=== PATIENT | female | born 1990 | race Caucasian/White ===

== ENCOUNTER 2016-06-06 22:39 | Emergency (ER) | payer OTHER ==
--- NOTE | 2016-06-06 22:52 | EDM.PDOC ---
ED HPI GENERAL MEDICAL PROBLEM - General Chief Complaint: Neuro Symptoms/Deficits Stated Complaint: HEADACHE/NUMBNESS LIP Time Seen by Provider: 06/06/16 22:52 - History of Present Illness INITIAL COMMENTS - FREE TEXT/NARRATIVE: HISTORY AND PHYSICAL: History of present illness: Patient's 26-year-old female history of a 30 week intrauterine with a concern of perioral numbness and bilateral hand numbness she states she does have anxiety she states a prior she did have preeclampsia she denies abdominal pain vaginal discharge or bleeding chest pain palpitations or other concern. Review of systems: As per history of present illness and below otherwise all systems reviewed and negative. Past medical history: As per history of present illness and as reviewed below otherwise noncontributory. Surgical history: As per history of present illness and as reviewed below otherwise noncontributory. Social history: No reported history of drug or alcohol abuse. Family history: As per history of present illness and as reviewed below otherwise noncontributory. Physical exam: HEENT: Atraumatic, normocephalic, pupils reactive, negative for conjunctival pallor or scleral icterus, mucous membranes moist, throat clear, neck supple, nontender, trachea midline. Lungs: Clear to auscultation, breath sounds equal bilaterally, chest nontender. Heart: S1S2, regular, negative for clicks, rubs, or JVD. Abdomen: Soft, gravid uterus consistent with dates nontender Negative for masses or hepatosplenomegaly. Negative for costovertebral tenderness. Pelvis: Stable nontender. Genitourinary: Deferred. Rectal: Deferred. Extremities: Atraumatic, negative for cords or calf pain. Neurovascular unremarkable. Neuro: Awake, alert, oriented. Cranial nerves II through XII unremarkable. Cerebellum unremarkable. Motor and sensory unremarkable throughout. Exam nonfocal. Diagnostics: CBC CMP UA heart tones EKG Therapeutics: None Impression: #1 30 week intrauterine #2 paresthesia #3 anxiety Definitive disposition and diagnosis as appropriate pending reevaluation and review of above. face & bilateral hands Pain Score (Numeric/FACES): 0 - Related Data Allergies Allergy/AdvReac Type Severity Reaction Status Date / Time No Known Allergies Allergy Verified 06/06/16 22:42 Home Meds: Home Meds Aspirin 81 mg PO ONETIME 06/06/16 [History] Vit #108/Iron/FA [ One Tablet] 1 tab PO DAILY 06/06/16 [History ] ED ROS GENERAL - Review of Systems Review Of Systems: ROS reveals no pertinent complaints other than HPI. ED EXAM, GENERAL - Physical Exam Exam: See Below (See dictation) Course - Vital Signs Last Recorded V/S: Last Vital Signs Temp 36.6 C 06/06/16 22:44 Pulse 95 06/06/16 22:44 Resp 18 06/06/16 22:44 BP 140/75 06/06/16 22:44 Pulse Ox 100 06/06/16 22:44 - Orders/Labs/Meds Orders: Active Orders 24 hr Category Date Time Status EKG 12 Lead [EKG Documentation Completion] [RC] STAT Care 06/06/16 22:42 Active Heart Rate [RC] Click To Edit Care 06/06/16 22:43 Active CBC WITH AUTO DIFF [HEME] Stat Lab 06/06/16 22:42 Ordered COMPREHENSIVE METABOLIC PN,CMP [CHEM] Stat Lab 06/06/16 22:42 Ordered UA W/MICROSCOPIC [URIN] Stat Lab 06/06/16 22:42 Uncollected Departure - Departure Time of Disposition: 22:51 Disposition: Home, Self-Care 01 Condition: good Clinical Impression: Third trimester , Anxiety Forms: ED Department Discharge Additional Instructions: The following information is given to patients seen in the emergency department who are being discharged to home. This information is to outline your options for follow-up care. We provide all patients seen in our emergency department with a follow-up referral. The need for follow-up, as well as the timing and circumstances, are variable depending upon the specifics of your emergency department visit. If you don't have a primary care physician on staff, we will provide you with a referral. We always advise you to contact your personal physician following an emergency department visit to inform them of the circumstance of the visit and for follow-up with them and/or the need for any referrals to a consulting specialist. The emergency department will also refer you to a specialist when appropriate. This referral assures that you have the opportunity for followup care with a specialist. All of these measure are taken in an effort to provide you with optimal care, which includes your followup. Under all circumstances we always encourage you to contact your private physician who remains a resource for coordinating your care. When calling for followup care, please make the office aware that this follow-up is from your recent emergency room visit. If for any reason you are refused follow-up, please contact the [facility] emergency department at and asked to speak to the emergency department charge nurse. Followup labor and delivery as discussed followup primary medical doctor/OB gynecology 24-48 hours return as needed as discussed - My Orders Last 24 Hours: My Active Orders 06/06/16 22:42 EKG 12 Lead [EKG Documentation Completion] [RC] STAT CBC WITH AUTO DIFF [HEME] Stat COMPREHENSIVE METABOLIC PN,CMP [CHEM] Stat UA W/MICROSCOPIC [URIN] Stat 06/06/16 22:43 Heart Rate [RC] Click To Edit - Assessment/Plan Last 24 Hours: My Active Orders 06/06/16 22:42 EKG 12 Lead [EKG Documentation Completion] [RC] STAT CBC WITH AUTO DIFF [HEME] Stat COMPREHENSIVE METABOLIC PN,CMP [CHEM] Stat UA W/MICROSCOPIC [URIN] Stat 06/06/16 22:43 Heart Rate [RC] Click To Edit
[2016-06-06 23:18] LABS: CHLORIDE,CL 108 mmol/L (98-110); SODIUM,NA 140 mmol/L (136-146)
[2016-06-06 23:50] VITALS: BP 116/62
== END 2016-06-06 23:46 | disposition home or self-care (01) ==
LOC: MW.ED 22:39
DX: O99.343 Other mental disorders complicating pregnancy, third trimester (principal); F41.9 Anxiety disorder, unspecified; R20.9 Unspecified disturbances of skin sensation; Z79.82 Long term (current) use of aspirin; Z3A.30 30 weeks gestation of pregnancy
CPT/HCPCS: 36415; 80053; 81001; 85025; 93005; 99283; 99284-25

== ENCOUNTER 2016-06-12 13:56 | Outpatient (CLI) | payer OTHER ==
[2016-06-12] MEDS ORDERED: Acetaminophen/oxyCODONE 325-5 MG Tab PO ONE (15:59)
--- NOTE | 2016-06-12 16:01 | US ---
EXAMINATION: Biophysical profile HISTORY: Decreased movement COMPARISON: None TECHNIQUE: Grayscale, color Doppler, and spectral Doppler images obtained transabdominally. FINDINGS: There is a single live intrauterine noted in the cephalic position. The placenta appears anterior. The amniotic fluid index is 20.5 cm. There is positive breathing, movement, and tone. The heart rate is 140 bpm. IMPRESSION: Biophysical profile 09/18.
== END 2016-06-12 16:30 | disposition home or self-care (01) ==
LOC: MW.OBCHECK 13:56 → MW.OB 14:00 → MW.OBCHECK 16:30
PROVIDERS: ATTEND Obstetrics & Gynecology
DX: O36.8130 Decreased fetal movements, third trimester, not applicable or unspecified (principal); M54.5 Low back pain; Z3A.30 30 weeks gestation of pregnancy
CPT/HCPCS: 59025; 76819; 81003; A9270

== ENCOUNTER 2016-08-09 00:20 | Inpatient (IN) | payer OTHER ==
[2016-08-09] MEDS ORDERED: Methylergonovine 0.2 MG/1 ML Amp IM PRN (13:09)
[2016-08-09] MEDS ORDERED: Sodium Chloride 0.9% 2.5 ML Syringe FLUSH PRN (13:09)
[2016-08-09] MEDS ORDERED: Sodium Chloride 0.9% 10 ML Syringe FLUSH PRN (13:09)
[2016-08-09] MEDS ORDERED: Butorphanol 1 MG/ML SDV IVPUSH PRN (13:09)
[2016-08-09] MEDS ORDERED: Carboprost Tromethamine 250 MCG/1 ML Amp IM PRN (13:09)
[2016-08-09] MEDS ORDERED: Water For Irrigation,Sterile 1,000 ML Container IRR PRN (13:09)
[2016-08-09] MEDS ORDERED: Lidocaine 1% 50 ML MDV INJECT PRN (13:09)
[2016-08-09] MEDS ORDERED: Misoprostol 200 MCG Tab PO PRN (13:09)
[2016-08-09] MEDS ORDERED: Terbutaline 1 MG/ML SDV SUBCUT PRN (13:13)
[2016-08-09] MEDS ORDERED: Oxytocin/Lactated Ringers 30 UNIT/500 ML BAG IV SCH (13:15)
[2016-08-09] MEDS: Lactated Ringers 1,000 ML IV SCH ×3 (14:10→19:51)
--- NOTE | 2016-08-09 18:44 | PCM.PREANE ---
Preanesthetic Assessment - Anesthesia/Transfusion/Family Hx Anesthesia History: Prior Anesthesia Without Reaction Family History of Anesthesia Reaction: No Transfusion History: No Prior Transfusion(s) - Review of Systems Other: Reports: None - Physical Assessment Height: 5 ft 2.5 in Weight: 123.831 kg ASA Class: 2 Mental Status: Alert & Oriented x3 Airway Class: Mallampati = 1 Dentition: Reports: Normal Dentition Thyro-Mental Finger Breadths: 3 Mouth Opening Finger Breadths: 3 ROM/Head Extension: Full - Lab Values: Laboratory Last Values WBC 10.42 K/uL (4.0-11.0) 08/09/16 13:36 RBC 4.16 M/uL (4.30-5.90) L 08/09/16 13:36 Hgb 11.9 g/dL (12.0-16.0) L 08/09/16 13:36 Hct 35.3 % (36.0-46.0) L 08/09/16 13:36 MCV 84.9 fL (80.0-98.0) 08/09/16 13:36 MCH 28.6 pg (27.0-32.0) 08/09/16 13:36 MCHC 33.7 g/dL (31.0-37.0) 08/09/16 13:36 RDW Std Deviation 49.1 fl (28.0-62.0) 08/09/16 13:36 RDW Coeff of [place] 16 % (11.0-15.0) H 08/09/16 13:36 Plt Count 189 K/uL (150-400) 08/09/16 13:36 MPV 9.70 fL (7.40-12.00) 08/09/16 13:36 Nucleated RBC % 0.6 /100WBC 08/09/16 13:36 Nucleated RBCs # 0 K/uL 08/09/16 13:36 Blood Type O NEGATIVE 08/09/16 13:36 Antibody Screen NEGATIVE 08/09/16 13:36 - Allergies Allergies/Adverse Reactions: Allergies Allergy/AdvReac Type Severity Reaction Status Date / Time No Known Allergies Allergy Verified 06/06/16 22:42 - Blood Blood Available: Yes Product(s) Available: PRBC - Acknowledgements Anesthesia Type Planned: Epidural Pt an Appropriate Candidate for the Planned Anesthesia: Yes Alternatives and Risks of Anesthesia Discussed w Pt/Guardian: Yes Pt/Guardian Understands and Agrees with Anesthesia Plan: Yes PreAnesthesia Questionnaire HEENT History: Reports: None Cardiovascular History: Reports: None Respiratory History: Reports: None Gastrointestinal History: Reports: None Genitourinary History: Reports: Other (See Below) Other Genitourinary History: Urinary tract infection [employer] History: Reports: , Other (See Below) Other OB/BYN History: Pre-eclampsia Musculoskeletal History: Reports: None Neurological History: Reports: None Psychiatric History: Reports: Anxiety Endocrine/Metabolic History: Reports: None Hematologic History: Reports: None Immunologic History: Reports: None Oncologic (Cancer) History: Reports: None Dermatologic History: Reports: None - Infectious Disease History Infectious Disease History: Reports: Chicken Pox - Past Surgical History Head Surgeries/Procedures: Reports: None Cardiovascular Surgical History: Reports: None Female Surgical History: Reports: Other (See Below) Other Female Surgeries/Procedures: Right Salpingectomy for Ectopic - SUBSTANCE USE Smoking Status *Q: Former Smoker (quit 3 months ago) Second Hand Smoke Exposure: No Recreational Drug Use History: No - HOME MEDS Home Medications: Home Meds Aspirin 81 mg PO ONETIME 06/06/16 [History] Vit #108/Iron/FA [ One Tablet] 1 tab PO DAILY 06/06/16 [History ] - CURRENT (IN HOUSE) MEDS Current Meds: Current Medications Butorphanol Tartrate (Stadol) 1 mg IVPUSH Q1H PRN PRN Reason: Pain Last Admin: 08/09/16 18:19 Dose: 1 mg Carboprost Tromethamine (Hemabate Ds) 250 mcg IM ASDIRECTED PRN PRN Reason: Post Hemorrhage Lactated Ringer's (Ringers, Lactated) 1,000 mls @ 150 mls/hr IV ASDIRECTED NICO Last Admin: 08/09/16 13:43 Dose: 150 mls/hr Oxytocin/Lactated Ringer's (Pitocin In Lr 30 Units/500 Ml) 30 unit in 500 mls @ 2 mls/hr IV TITRATE NICO; 2 MUNITS/MIN PRN Reason: Protocol Last Titration: 08/09/16 17:33 Dose: 18 munits/min, 18 mls/hr Lidocaine HCl (Xylocaine 1%) 50 ml INJECT .ONCE PRN PRN Reason: Laceration repair Methylergonovine Maleate (Methergine) 0.2 mg IM ASDIRECTED PRN PRN Reason: Post Hemorrhage Misoprostol (Cytotec) 200 mcg PO .ONCE PRN PRN Reason: Post Hemorrhage Sodium Chloride (Saline Flush) 10 ml FLUSH ASDIRECTED PRN PRN Reason: Keep Vein Open Sodium Chloride (Saline Flush) 2.5 ml FLUSH ASDIRECTED PRN PRN Reason: Keep Vein Open Sterile Water (Sterile Water For Irrigation) 1,000 ml IRR ASDIRECTED PRN PRN Reason: delivery Terbutaline Sulfate (Brethine) 0.25 mg SUBCUT ASDIRECTED PRN PRN Reason: Tacysystole
[2016-08-09] MEDS ORDERED: Ropivacaine 0.2% 2 MG/ML 20 ML SDV ONE (19:06)
[2016-08-10] MEDS ORDERED: Ibuprofen 800 MG Tab ONE (01:06)
[2016-08-10] MEDS ORDERED: Acetaminophen 500 MG Tab PO PRN (01:24)
[2016-08-10] MEDS ORDERED: Benzocaine/Menthol 20%-0.5% Spray 78 GM Cannister TOP PRN (01:24)
[2016-08-10] MEDS ORDERED: Methylergonovine 0.2 MG/1 ML Amp IM PRN (01:24)
[2016-08-10] MEDS ORDERED: Bisacodyl 10 MG Supp RECTAL PRN (01:24)
[2016-08-10] MEDS ORDERED: Oxytocin/Lactated Ringers 30 UNIT/500 ML BAG ONE (01:24)
[2016-08-10] MEDS ORDERED: Witch Hazel Medicated Pads 40/Jar TOP PRN (01:24)
[2016-08-10] MEDS ORDERED: Docusate Sodium 100 MG Cap PO PRN (01:24)
[2016-08-10] MEDS ORDERED: oxyCODONE 5 MG Tab PO PRN (01:24)
[2016-08-10] MEDS ORDERED: Lanolin 100% Cream 7 GM Tube TOP PRN (01:24)
[2016-08-10] MEDS: Ibuprofen 800 MG Tab PO PRN ×3 (01:39→22:51)
--- NOTE | 2016-08-10 05:36 | OR ---
SURGEON: Adriane Rosenbaum M.D. DATE OF PROCEDURE: 08/10/2016 PREOPERATIVE DIAGNOSIS: A 39-1/7th week intrauterine for induction of labor. POSTOPERATIVE DIAGNOSIS: A 39-1/7th week intrauterine for induction of labor and macrosomia with shoulder dystocia. PROCEDURE: 1. Pitocin induction of labor, term spontaneous vaginal delivery. 2. Repair of second-degree laceration. ANESTHESIA: Epidural. ESTIMATED BLOOD LOSS: Less than 300 mL. FINDINGS: Live born female, score 3, 7, and 8, weighing 4870 g. Placenta spontaneous. Schultze intact with 3 vessels. Second-degree perineal laceration was repaired. The has weakness in the left arm and some bruising on the left shoulder. COMPLICATIONS: None known. DISPOSITION: Mother and baby are in LDRP in good condition. BRIEF HISTORY: This is a 26-year-old female, G4, P2-0-1-2, who presents at 39 weeks' gestation for elective induction of labor. She has a history of preeclampsia with some mildly elevated blood pressures at term. However, preeclamptic evaluation has been negative. She transferred care at 28 weeks gestation. She is blood type O negative. She received RhoGAM during the and she is rubella immune. Group B strep negative. Estimated weight from Dr. Pearl was 3900 g. Cephalic presentation. This estimated weight was slightly higher than the estimated weight predicted by ultrasound. The patient presented to Labor and Delivery. She had category 1 heart tones. Her cervix was initially 3 cm, 70%, -2 station. Pitocin was initiated. Artificial rupture of membranes was performed with clear fluid noted. She received an epidural for pain control and she progressed to complete. PROCEDURE: With the patient in dorsal lithotomy position, under adequate epidural analgesia, the patient pushed over 30 minute time period to +5 station. At this point, some turtling was noted. I did have the nurses prepare for shoulder dystocia drill. I also notified the patient of the plan to utilize Whit maneuver and suprapubic pressure. Over the next two contractions, she did continue to push and the head was delivered spontaneously and atraumatically over the perineum with support. The head was delivered in the right occiput anterior position. The curling sign occurred. There was suprapubic pressure that had immediately been applied and was even applied as the head was being delivered. The maternal head was placed in the lowest position and hyperflexion of the hips was performed. With this, the shoulder did not easily deliver. I placed a hand behind the shoulder to rotate the shoulder anteriorly. The anterior shoulder did not move whatsoever. There was a large amount of room posteriorly, so I worked rotating the posterior shoulder anteriorly and then rotated the anterior shoulder posteriorly and I was able to slowly rotate the anterior shoulder down from behind the pubic symphysis delivering the posterior arm first and then the anterior arm with subsequent delivery of the 's body without any difficulty. As the baby was delivered, the cord avulsed. It was quickly clamped and the required some resuscitation always with a normal heart rate and several puffs with the oxygen mask and the baby had scores of 3, 7, and 8. Dr. Barragan was present very shortly after delivery to assist with evaluation. The resuscitation was completed by the time she had arrived. Cord blood was collected for cord ABGs as well as routine cord blood sampling. Pitocin was initiated after delivery of the to assist with delivery of the placenta which was delivered spontaneously. Madalyn intact with 3 vessels. I did carefully inspect the placenta, particularly related to the reported history of an accessory lobe. They did appear completely intact with no area of potential absent accessory lobe identified. Upon inspection the pelvis and perineum, there were no periurethral, vaginal sidewall, cervical, or rectal lacerations. There was a very superficial second-degree perineal laceration that was repaired with a running lock suture of 3-0 Caprosyn for the vaginal mucosa, a deep running suture of the same for the perineum, and a subcuticular suture of the same for the perineal skin. EBL for the procedure was less than 300 mL. The was assessed by Dr. Barragan. There was some bruising on the left shoulder and some weakness of the left arm at this point. This was reviewed with the mother and father explaining the nature of shoulder dystocia, the appropriate maneuvers that were performed, and the anticipation that this will quickly improve and/or resolve. ANAND / ARABELLA /[id number]
--- NOTE | 2016-08-10 08:46 | PCM48HPAN ---
Post Anesthesia Note - EVALUATION WITHIN 48HRS OF ANESTHETIC Vital Signs in Normal Range: Yes Patient Participated in Evaluation: Yes Respiratory Function Stable: Yes Airway Patent: Yes Cardiovascular Function Stable: Yes Hydration Status Stable: Yes Pain Control Satisfactory: Yes Nausea and Vomiting Control Satisfactory: Yes Mental Status Recovered: Yes - COMMENTS/OBSERVATIONS Free Text/Narrative:: Delivered 10 lb son under epidural analgesia. Catheter removed by RN - intact. Doing well this morning.
--- NOTE | 2016-08-10 08:53 | PCM.PNPP ---
- General Info Date of Service: 08/10/16 Functional Status: Reports: pain controlled, tolerating diet, ambulating, urinating - Review of Systems General: Denies: Fever, Weakness Pulmonary: Denies: shortness of breath Cardiovascular: Denies: Chest Pain, Palpitations, Lightheadedness Gastrointestinal: Denies: Abdominal pain, Nausea, Vomiting Genitourinary: Denies: flank pain Neurological: Reports: No Symptoms - General Info Date of Service: 08/10/16 - Patient Data Vital Signs - most recent: Last Vital Signs Temp 36.9 C 08/10/16 04:00 Pulse 119 H 08/10/16 04:00 Resp 18 08/10/16 04:00 BP 133/69 08/10/16 04:00 Pulse Ox 96 08/10/16 04:00 Weight - most recent: 123.831 kg I&O - last 24 hours: Intake & Output 08/09/16 08/10/16 08/10/16 22:59 06:59 14:59 Output Total 480 Balance -480 Lab Results - last 24 hrs: Laboratory Results - last 24 hr 08/09/16 08/09/16 08/10/16 Range/Units 13:36 13:36 01:24 WBC 10.42 (4.0-11.0) K/uL RBC 4.16 L (4.30-5.90) M/uL Hgb 11.9 L (12.0-16.0) g/dL Hct 35.3 L (36.0-46.0) % MCV 84.9 (80.0-98.0) fL MCH 28.6 (27.0-32.0) pg MCHC 33.7 (31.0-37.0) g/dL RDW Std Deviation 49.1 (28.0-62.0) fl RDW Coeff of [place] 16 H (11.0-15.0) % Plt Count 189 (150-400) K/uL MPV 9.70 (7.40-12.00) fL Nucleated RBC % 0.6 /100WBC Nucleated RBCs # 0 K/uL Blood Type O NEGATIVE Antibody Screen NEGATIVE Rhogam Indicated NO, MOM+BABY RH NEG Med Orders - Current: Current Medications Acetaminophen (Tylenol Extra Strength) 1,000 mg PO Q4H PRN PRN Reason: Pain Benzocaine/Menthol (Dermoplast Pain Relief 20%-0.5% [place]) 78 gm TOP ASDIRECTED PRN PRN Reason: Perineal Comfort Measure Bisacodyl (Dulcolax) 10 mg RECTAL .ONCE PRN PRN Reason: Constipation Docusate Sodium (Colace) 100 mg PO BID PRN PRN Reason: Constipation Emollient Ointment (Lansinoh Hpa) 0 gm TOP ASDIRECTED PRN PRN Reason: Sore Nipples Ibuprofen (Motrin) 800 mg PO Q6H PRN PRN Reason: Pain Last Admin: 08/10/16 01:39 Dose: 800 mg Methylergonovine Maleate (Methergine) 0.2 mg IM .ONCE PRN PRN Reason: Excessive Vaginal Bleeding Oxycodone HCl (Oxycodone) 5 mg PO Q2H PRN PRN Reason: Pain Witch Rosalie (Tucks) 1 pad TOP ASDIRECTED PRN PRN Reason: comfort care Discontinued Medications Butorphanol Tartrate (Stadol) 1 mg IVPUSH Q1H PRN PRN Reason: Pain Stop: 08/10/16 01:21 Last Admin: 08/09/16 18:19 Dose: 1 mg Carboprost Tromethamine (Hemabate Ds) 250 mcg IM ASDIRECTED PRN PRN Reason: Post Hemorrhage Lactated Ringer's (Ringers, Lactated) 1,000 mls @ 150 mls/hr IV ASDIRECTED NICO Last Admin: 08/09/16 19:51 Dose: 150 mls/hr Oxytocin/Lactated Ringer's (Pitocin In Lr 30 Units/500 Ml) 30 unit in 500 mls @ 2 mls/hr IV TITRATE NICO; 2 MUNITS/MIN PRN Reason: Protocol Last Titration: 08/09/16 22:14 Dose: 20 munits/min, 20 mls/hr Ropivacaine/Fentanyl/NS (Fentanyl 2 Mcg-Ropiv 0.2%-Ns) Confirm Administered Dose 100 mls @ as directed .ROUTE .STK-MED ONE Stop: 08/09/16 19:07 Oxytocin/Lactated Ringer's (Pitocin In Lr 30 Units/500 Ml) Confirm Administered Dose 30 unit in 500 mls @ as directed .ROUTE .STK-MED ONE Stop: 08/10/16 01:25 Last Admin: 08/10/16 01:38 Dose: 500 unit Ibuprofen (Motrin) Confirm Administered Dose 800 mg .ROUTE .STK-MED ONE Stop: 08/10/16 01:07 Lidocaine HCl (Xylocaine 1%) 50 ml INJECT .ONCE PRN PRN Reason: Laceration repair Methylergonovine Maleate (Methergine) 0.2 mg IM ASDIRECTED PRN PRN Reason: Post Hemorrhage Misoprostol (Cytotec) 200 mcg PO .ONCE PRN PRN Reason: Post Hemorrhage Ropivacaine (Naropin 0.2%) Confirm Administered Dose 20 ml .ROUTE .STK-MED ONE Stop: 08/09/16 19:07 Sodium Chloride (Saline Flush) 10 ml FLUSH ASDIRECTED PRN PRN Reason: Keep Vein Open Sodium Chloride (Saline Flush) 2.5 ml FLUSH ASDIRECTED PRN PRN Reason: Keep Vein Open Sterile Water (Sterile Water For Irrigation) 1,000 ml IRR ASDIRECTED PRN PRN Reason: delivery Terbutaline Sulfate (Brethine) 0.25 mg SUBCUT ASDIRECTED PRN PRN Reason: Tacysystole - Recovery Exam Fundal Tone: Firm Fundal Level: 2 Fingerbreadths Above Umbilicus Fundal Placement: Right Lochia Amount: Moderate Lochia Color: Rubra/Red Perineum Description: Edematous Episiotomy/Laceration: Approximated Bladder Status: Voiding Urinary Elimination: Voided - Exam General: alert, oriented Lungs: Normal respiratory effort, Rhonchi Cardiovascular: Regular Rate Abdomen: bowel sounds present, soft. No: CVA tenderness Extremities: no calf tenderness Skin: warm, dry, intact Psy/Mental Status: alert, normal affect - Problem List & Annotations (1) Vaginal delivery SNOMED Code(s): 849799379 Code(s): O80 - ENCOUNTER FOR FULL-TERM UNCOMPLICATED DELIVERY Status: Acute Current Visit: Yes - Problem List Review Problem List Initiated/Reviewed/Updated: Yes - My Orders Last 24 Hours: My Active Orders 08/09/16 13:10 Heart Tones [RC] CONTINUOUS Non Stress Test [RC] PER UNIT ROUTINE May Shower [RC] ASDIRECTED Notify Provider [RC] PRN Up ad Leila [RC] ASDIRECTED Vaginal Exam [RC] PRN Vital Signs [RC] PER UNIT ROUTINE 08/09/16 13:13 Bedrest Bathroom Privileges [RC] ASDIRECTED Communication Order [RC] ASDIRECTED Communication Order [RC] ASDIRECTED Notify Provider [RC] PRN Notify Provider [RC] STAT Oxygen Therapy [RC] ASDIRECTED Vaginal Exam [RC] PRN Vital Signs [RC] PER UNIT ROUTINE - Assessment Assessment:: PPD 0 Status post Shoulder dystocia - Plan Plan:: Patient is feeling well this morning--continue PP cares. going well. Discussed paraguard IUD for contraception vs vasectomy.
[2016-08-11] MEDS: Ibuprofen 800 MG Tab PO PRN ×2 (07:05→15:02)
--- NOTE | 2016-08-11 10:16 | PCM.PNPP ---
- General Info Date of Service: 08/11/16 Functional Status: Reports: pain controlled, tolerating diet, ambulating, urinating - Review of Systems General: Reports: No Symptoms HEENT: Reports: no symptoms Pulmonary: Reports: no symptoms Cardiovascular: Reports: No Symptoms Gastrointestinal: Reports: No symptoms Genitourinary: Reports: no symptoms Musculoskeletal: Reports: no symptoms Skin: Reports: no symptoms Neurological: Reports: No Symptoms Psychiatric: Reports: no symptoms - General Info Date of Service: 08/11/16 - Patient Data Vital Signs - most recent: Last Vital Signs Temp 36.3 C 08/11/16 08:00 Pulse 89 08/11/16 08:00 Resp 16 08/11/16 08:00 BP 122/54 L 08/11/16 08:00 Pulse Ox 96 08/11/16 08:00 Weight - most recent: 123.831 kg Lab Results - last 24 hrs: Laboratory Results - last 24 hr 08/11/16 Range/Units 05:53 Hgb 10.6 L (12.0-16.0) g/dL Hct 32.4 L (36.0-46.0) % Med Orders - Current: Current Medications Acetaminophen (Tylenol Extra Strength) 1,000 mg PO Q4H PRN PRN Reason: Pain Benzocaine/Menthol (Dermoplast Pain Relief 20%-0.5% [place]) 78 gm TOP ASDIRECTED PRN PRN Reason: Perineal Comfort Measure Bisacodyl (Dulcolax) 10 mg RECTAL .ONCE PRN PRN Reason: Constipation Docusate Sodium (Colace) 100 mg PO BID PRN PRN Reason: Constipation Emollient Ointment (Lansinoh Hpa) 0 gm TOP ASDIRECTED PRN PRN Reason: Sore Nipples Ibuprofen (Motrin) 800 mg PO Q6H PRN PRN Reason: Pain Last Admin: 08/11/16 07:05 Dose: 800 mg Methylergonovine Maleate (Methergine) 0.2 mg IM .ONCE PRN PRN Reason: Excessive Vaginal Bleeding Oxycodone HCl (Oxycodone) 5 mg PO Q2H PRN PRN Reason: Pain Witch Rosalie (Tucks) 1 pad TOP ASDIRECTED PRN PRN Reason: comfort care Discontinued Medications Butorphanol Tartrate (Stadol) 1 mg IVPUSH Q1H PRN PRN Reason: Pain Stop: 08/10/16 01:21 Last Admin: 08/09/16 18:19 Dose: 1 mg Carboprost Tromethamine (Hemabate Ds) 250 mcg IM ASDIRECTED PRN PRN Reason: Post Hemorrhage Lactated Ringer's (Ringers, Lactated) 1,000 mls @ 150 mls/hr IV ASDIRECTED NICO Last Admin: 08/09/16 19:51 Dose: 150 mls/hr Oxytocin/Lactated Ringer's (Pitocin In Lr 30 Units/500 Ml) 30 unit in 500 mls @ 2 mls/hr IV TITRATE NICO; 2 MUNITS/MIN PRN Reason: Protocol Last Titration: 08/09/16 22:14 Dose: 20 munits/min, 20 mls/hr Ropivacaine/Fentanyl/NS (Fentanyl 2 Mcg-Ropiv 0.2%-Ns) Confirm Administered Dose 100 mls @ as directed .ROUTE .STK-MED ONE Stop: 08/09/16 19:07 Last Admin: 08/10/16 09:57 Dose: Not Given Oxytocin/Lactated Ringer's (Pitocin In Lr 30 Units/500 Ml) Confirm Administered Dose 30 unit in 500 mls @ as directed .ROUTE .STK-MED ONE Stop: 08/10/16 01:25 Last Admin: 08/10/16 01:38 Dose: 500 unit Ibuprofen (Motrin) Confirm Administered Dose 800 mg .ROUTE .STK-MED ONE Stop: 08/10/16 01:07 Last Admin: 08/10/16 09:57 Dose: Not Given Lidocaine HCl (Xylocaine 1%) 50 ml INJECT .ONCE PRN PRN Reason: Laceration repair Methylergonovine Maleate (Methergine) 0.2 mg IM ASDIRECTED PRN PRN Reason: Post Hemorrhage Misoprostol (Cytotec) 200 mcg PO .ONCE PRN PRN Reason: Post Hemorrhage Ropivacaine (Naropin 0.2%) Confirm Administered Dose 20 ml .ROUTE .STK-MED ONE Stop: 08/09/16 19:07 Last Admin: 08/10/16 09:57 Dose: Not Given Sodium Chloride (Saline Flush) 10 ml FLUSH ASDIRECTED PRN PRN Reason: Keep Vein Open Sodium Chloride (Saline Flush) 2.5 ml FLUSH ASDIRECTED PRN PRN Reason: Keep Vein Open Sterile Water (Sterile Water For Irrigation) 1,000 ml IRR ASDIRECTED PRN PRN Reason: delivery Terbutaline Sulfate (Brethine) 0.25 mg SUBCUT ASDIRECTED PRN PRN Reason: Tacysystole - Interaction Disposition, : [place] in Room with Family Interaction: Holding Infant Feeding: Attempted ; Nursed Fair/Poor - Recovery Exam Fundal Tone: Firm Fundal Level: 1 Fingerbreadths Below Umbilicus Fundal Placement: Midline Lochia Amount: Scant Lochia Color: Rubra/Red Perineum Description: Intact, Minimal Bruising/Swelling Episiotomy/Laceration: Approximated Bladder Status: Nonpalpable Urinary Elimination: Voided - Exam General: alert, oriented Neck: supple Lungs: Clear to auscultation, Normal respiratory effort Cardiovascular: Regular Rate, Regular Rhythm Abdomen: bowel sounds present Extremities: no calf tenderness Skin: warm, dry, intact Neurological: no new focal deficit Psy/Mental Status: alert, normal affect, normal mood - Problem List & Annotations (1) Vaginal delivery SNOMED Code(s): 213341702 Code(s): O80 - ENCOUNTER FOR FULL-TERM UNCOMPLICATED DELIVERY Status: Acute Current Visit: Yes - Problem List Review Problem List Initiated/Reviewed/Updated: Yes - Assessment Assessment:: PPD 1 Status post Shoulder dystocia Doing well Anticipate discharge home tomorrow - Plan Plan:: Increase ambulation Routine care
[2016-08-12] MEDS: Ibuprofen 800 MG Tab PO PRN ×2 (02:18→08:47)
[2016-08-12 08:34] VITALS: BP 132/67
--- NOTE | 2016-08-12 09:51 | PCM.PNPP ---
- General Info Date of Service: 08/12/16 Functional Status: Reports: pain controlled, tolerating diet, ambulating, urinating - Review of Systems General: Reports: No Symptoms HEENT: Reports: no symptoms Pulmonary: Reports: no symptoms Cardiovascular: Reports: No Symptoms Gastrointestinal: Reports: No symptoms Genitourinary: Reports: no symptoms Musculoskeletal: Reports: no symptoms Skin: Reports: no symptoms Neurological: Reports: No Symptoms Psychiatric: Reports: no symptoms - General Info Date of Service: 08/12/16 - Patient Data Vital Signs - most recent: Last Vital Signs Temp 36.9 C 08/12/16 08:00 Pulse 97 08/12/16 08:00 Resp 20 08/12/16 08:00 BP 132/67 08/12/16 08:00 Pulse Ox 97 08/12/16 08:00 Weight - most recent: 123.831 kg Med Orders - Current: Current Medications Acetaminophen (Tylenol Extra Strength) 1,000 mg PO Q4H PRN PRN Reason: Pain Last Admin: 08/11/16 20:39 Dose: 1,000 mg Benzocaine/Menthol (Dermoplast Pain Relief 20%-0.5% [place]) 78 gm TOP ASDIRECTED PRN PRN Reason: Perineal Comfort Measure Bisacodyl (Dulcolax) 10 mg RECTAL .ONCE PRN PRN Reason: Constipation Docusate Sodium (Colace) 100 mg PO BID PRN PRN Reason: Constipation Emollient Ointment (Lansinoh Hpa) 0 gm TOP ASDIRECTED PRN PRN Reason: Sore Nipples Ibuprofen (Motrin) 800 mg PO Q6H PRN PRN Reason: Pain Last Admin: 08/12/16 08:47 Dose: 800 mg Methylergonovine Maleate (Methergine) 0.2 mg IM .ONCE PRN PRN Reason: Excessive Vaginal Bleeding Oxycodone HCl (Oxycodone) 5 mg PO Q2H PRN PRN Reason: Pain Last Admin: 08/12/16 08:47 Dose: 5 mg Witch Rosalie (Tucks) 1 pad TOP ASDIRECTED PRN PRN Reason: comfort care Discontinued Medications Butorphanol Tartrate (Stadol) 1 mg IVPUSH Q1H PRN PRN Reason: Pain Stop: 08/10/16 01:21 Last Admin: 08/09/16 18:19 Dose: 1 mg Carboprost Tromethamine (Hemabate Ds) 250 mcg IM ASDIRECTED PRN PRN Reason: Post Hemorrhage Lactated Ringer's (Ringers, Lactated) 1,000 mls @ 150 mls/hr IV ASDIRECTED NICO Last Admin: 08/09/16 19:51 Dose: 150 mls/hr Oxytocin/Lactated Ringer's (Pitocin In Lr 30 Units/500 Ml) 30 unit in 500 mls @ 2 mls/hr IV TITRATE NICO; 2 MUNITS/MIN PRN Reason: Protocol Last Titration: 08/09/16 22:14 Dose: 20 munits/min, 20 mls/hr Ropivacaine/Fentanyl/NS (Fentanyl 2 Mcg-Ropiv 0.2%-Ns) Confirm Administered Dose 100 mls @ as directed .ROUTE .Xeneta ONE Stop: 08/09/16 19:07 Last Admin: 08/10/16 09:57 Dose: Not Given Oxytocin/Lactated Ringer's (Pitocin In Lr 30 Units/500 Ml) Confirm Administered Dose 30 unit in 500 mls @ as directed .ROUTE .Xeneta ONE Stop: 08/10/16 01:25 Last Admin: 08/10/16 01:38 Dose: 500 unit Ibuprofen (Motrin) Confirm Administered Dose 800 mg .ROUTE .Xeneta ONE Stop: 08/10/16 01:07 Last Admin: 08/10/16 09:57 Dose: Not Given Lidocaine HCl (Xylocaine 1%) 50 ml INJECT .ONCE PRN PRN Reason: Laceration repair Methylergonovine Maleate (Methergine) 0.2 mg IM ASDIRECTED PRN PRN Reason: Post Hemorrhage Misoprostol (Cytotec) 200 mcg PO .ONCE PRN PRN Reason: Post Hemorrhage Ropivacaine (Naropin 0.2%) Confirm Administered Dose 20 ml .ROUTE .Xeneta ONE Stop: 08/09/16 19:07 Last Admin: 08/10/16 09:57 Dose: Not Given Sodium Chloride (Saline Flush) 10 ml FLUSH ASDIRECTED PRN PRN Reason: Keep Vein Open Sodium Chloride (Saline Flush) 2.5 ml FLUSH ASDIRECTED PRN PRN Reason: Keep Vein Open Sterile Water (Sterile Water For Irrigation) 1,000 ml IRR ASDIRECTED PRN PRN Reason: delivery Terbutaline Sulfate (Brethine) 0.25 mg SUBCUT ASDIRECTED PRN PRN Reason: Tacysystole - Interaction Disposition, : in Room with Family Interaction: Holding Feeding: Attempted ; Nursed Fair/Poor - Recovery Exam Fundal Tone: Firm Fundal Level: At Umbilicus Fundal Placement: Midline Lochia Amount: Scant Lochia Color: Rubra/Red Perineum Description: Other (see below) Other Perinuem Description: 2nd degree laceration Episiotomy/Laceration: Approximated Bladder Status: Voiding Urinary Elimination: Voided - Exam General: alert, oriented Neck: supple Lungs: Clear to auscultation, Normal respiratory effort Cardiovascular: Regular Rate, Regular Rhythm Abdomen: bowel sounds present, soft, no tenderness Extremities: no calf tenderness Wound/Incisions: healing well Neurological: no new focal deficit Psy/Mental Status: alert, normal affect, normal mood - Problem List & Annotations (1) Vaginal delivery SNOMED Code(s): 409587125 Code(s): O80 - ENCOUNTER FOR FULL-TERM UNCOMPLICATED DELIVERY Status: Acute Current Visit: Yes - Problem List Review Problem List Initiated/Reviewed/Updated: Yes - My Orders Last 24 Hours: My Active Orders 08/12/16 02:37 Admission Diagnosis [ADT] Routine 08/12/16 10:00 Ready for Discharge [RC] PER UNIT ROUTINE - Assessment Assessment:: PPD 2 Status post Shoulder dystocia Doing well Discharge home today - Plan Plan:: Pelvic rest for 6wks Infection precautions given Thrombotic precautions Bleeding precautions given blues/depression precautions given
== END 2016-08-12 13:40 | disposition home or self-care (01) | DRG 775 ==
LOC: MW.OB 00:20 → OBSVTOIN 08-10 00:20 → MW.OB 08-10 04:10
PROVIDERS: ADMIT Obstetrics & Gynecology; ATTEND Obstetrics & Gynecology
PROC: 10E0XZZ Delivery of Products of Conception, External Approach (ICD-10-PCS; principal; 2016-08-10)
PROC: 0KQM0ZZ Repair Perineum Muscle, Open Approach (ICD-10-PCS; 2016-08-10)
PROC: 3E033VJ Introduction of Other Hormone into Peripheral Vein, Percutaneous Approach (ICD-10-PCS; 2016-08-10)
DX: O36.63X0 Maternal care for excessive fetal growth, third trimester, not applicable or unspecified (principal); O70.1 Second degree perineal laceration during delivery; O66.0 Obstructed labor due to shoulder dystocia; Z3A.39 39 weeks gestation of pregnancy; Z37.0 Single live birth
CPT/HCPCS: 01967; 36415; 51703; 59025; 85014; 85018; 85027; 86850; 86900; 86901; A9270-GY; J0595; J7120